=== PATIENT | male | born 1995 ===

== ENCOUNTER 2018-03-01 20:51 | Inpatient (IN) | payer BC ==
[2018-03-01] MEDS ORDERED: Sodium Chloride 0.9% 1,000 ML IV STA (21:11)
[2018-03-01 21:15] VITALS: RESP 18; BMI 20.5
--- NOTE | 2018-03-01 21:19 | ED PDOC ---
Arrival/HPI - General Chief Complaint: ENT Problem Time Seen by Provider: 03/01/18 21:09 Historian: Patient - History of Present Illness Narrative History of Present Illness (Text): 03/01/18 21:16 This 22 yo male with pmh peritosilar abscess, presents to this emergency department complaining of sore throat x 2 days. Patient stated left side is worse than right. Patient has mild dyphagia, but he is able to drink water. Time/Duration: Other (2 days) Context: Home Past Medical History - Provider Review Nursing Documentation Reviewed: Yes - Infectious Disease Hx of Infectious Diseases: None - Tetanus Immunization Tetanus Immunization: Unknown - Psychiatric Hx Depression: No Hx Emotional Abuse: No Hx Physical Abuse: No Hx Substance Use: No - Surgical History Other/Comment: ? buttock surgery - fissure - Anesthesia Hx Anesthesia: Yes Hx Anesthesia Reactions: No Hx Malignant Hyperthermia: No - Suicidal Assessment Feels Threatened In Home Enviroment: No Family/Social History - Physician Review Nursing Documentation Reviewed: Yes Family/Social History: Other (noncontributory) Smoking Status: Heavy Smoker > 10 Cigarettes Daily Hx Alcohol Use: Yes Frequency of alcohol use: Socially Hx Substance Use: No Hx Substance Use Treatment: No Allergies/Home Meds Allergies/Adverse Reactions: Allergies No Known Allergies Allergy (Verified 09/23/16 06:41) Home Medications: Home Meds Medication Instructions Recorded Confirmed No Known Home Med 09/23/16 03/01/18 Review of Systems - Review of Systems Constitutional: Normal. absent: Fatigue, Weight Change, Fevers, Night Sweats Eyes: Normal ENT: Sore Throat, Other (see hpi). absent: Rhinorrhea, Epistaxis, Sinus Congestion Respiratory: Normal. absent: SOB, Cough Cardiovascular: Normal. absent: Chest Pain, Palpitations Gastrointestinal: Normal. absent: Abdominal Pain, Nausea, Vomiting Genitourinary Male: Normal. absent: Dysuria, Frequency Musculoskeletal: Normal Skin: Normal. absent: Rash Neurological: Normal. absent: Headache, Dizziness, Focal Weakness, Gait Changes , Speech Changes, Facial Droop, Disequilibrium, Seizure Endocrine: Normal Hemo/Lymphatic: Normal Psychiatric: Normal Physical Exam Vital Signs Temp Pulse Resp BP Pulse Ox 03/01/18 21:01 99.2 F 97 H 18 108/63 97 Temperature: Afebrile Blood Pressure: Normal Pulse: Regular Respiratory Rate: Normal Appearance: Positive for: Well-Appearing, Non-Toxic, Comfortable Pain Distress: None Mental Status: Positive for: Alert and Oriented X 3 - Systems Exam Head: Present: Atraumatic, Normocephalic Pupils: Present: PERRL Extroacular Muscles: Present: EOMI Conjunctiva: Present: Normal Mouth: Present: Moist Mucous Membranes, Normal Lips, Normal Tounge, Normal Teeth. No: Drooling, Trismus Pharnyx: Present: ERYTHEMA, TONSILS ENLARGED, Peritonsilar Swelling, Soft Palate /Uvular Edema (mild). No: EXUDATE, Uvular Deviation, Muffled/Hoarse Voice, Strider Nose (External): Present: Atraumatic Nose (Internal): Present: Normal Inspection Neck: Present: Normal Range of Motion, Lymphadenopathy (mild left cervical lymphadenopathy), Trachea Midline. No: MIDLINE TENDERNESS, Paraspinal Tenderness Respiratory/Chest: Present: Clear to Auscultation, Good Air Exchange. No: Respiratory Distress, Accessory Muscle Use, Wheezes, Retracting, Rhonchi, Tachypneic Cardiovascular: Present: Regular Rate and Rhythm, Normal S1, S2. No: Murmurs Abdomen: No: Tenderness, Distention, Peritoneal Signs Back: Present: Normal Inspection. No: CVA Tenderness, Midline Tenderness, Paraspinal Tenderness, Pain with Leg Raise Upper Extremity: Present: Normal Inspection, Normal ROM, NORMAL PULSES, Neurovascularly Intact, Capillary Refill < 2s. No: Cyanosis, Edema Lower Extremity: Present: Normal Inspection, NORMAL PULSES, Normal ROM, Neurovascularly Intact, Capillary Refill < 2 s. No: Edema Neurological: Present: GCS=15, CN II-XII Intact, Speech Normal, Motor Func Grossly Intact, Normal Sensory Function, Normal Cerebellar Funct, Gait Normal Skin: Present: Warm, Dry, Normal Color. No: Rashes Psychiatric: Present: Alert, Oriented x 3, Normal Insight, Normal Concentration Medical Decision Making ED Course and Treatment: 03/01/18 21:20 I reviewed with patient the risk taking Solumedrol IVP including AVN, glaucoma, Diabetes, osteoporosis. He understood risk, but he would like to have Solumedrol. 03/02/18 00:[address] Shaikh ENT regarding lab result, CT scan which shows a 3 cm left peritonsilar abscess. He recommended to continue with Unasyn Q6H, Solumedrol 60 mg Q6H, and admission. He said he will see patient tomorrow. 03/02/18 00:[address] Brito regarding patient symptoms, labs, VS, and ENT consult. Dr. Brito stated patient appears non-toxic, comfortable, in no acute distress. Patient can be admitted to Med-surg. Re-evaluation Time: 00:49 Reassessment Condition: Re-examined, Improving,but remains with symptoms - Lab Interpretations Lab Results: 03/01/18 19:40 03/01/18 19:40 Lab Results 03/01/18 23:39: pO2 208 H, VBG pH 7.40, VBG pCO2 47.0, VBG HCO3 29.1 H, VBG Total CO2 30.5 H, VBG O2 Sat (Calc) 99.9 H, VBG Base Excess 3.5 H, VBG Potassium 4.3, Glucose 114 H, Lactate 1.0, FiO2 21.0, Sodium 136.0, Chloride 105.0, Venous Blood Potassium 4.3 03/01/18 19:40: Sodium 142, Potassium 4.0, Chloride 101, Carbon Dioxide 27, Anion Gap 18, BUN 9, Creatinine 0.7 L, Est GFR ( Amer) > 60, Est GFR (Non -Af Amer) > 60, Random Glucose 141 H, Calcium 9.0, Total Bilirubin < 0.1 L, AST 26, ALT 31, Alkaline Phosphatase 64, Total Protein 6.8, Albumin 4.0, Globulin 2.8, Albumin/Globulin Ratio 1.4 03/01/18 19:40: Grp A Beta Strep Ag Negative 03/01/18 19:40: WBC 18.6 H, RBC 4.37, Hgb 12.9 L, Hct 38.6 L, MCV 88.3, MCH 29.5 , MCHC 33.4, RDW 13.0, Plt Count 409, MPV 8.6, Gran % 66.5, Lymph % (Auto) 21.1 L, [place] % (Auto) 11.2 H, Eos % (Auto) 1.1 L, Baso % (Auto) 0.1, Gran # 12.37 H, Lymph # (Auto) 3.9 H, [place] # (Auto) 2.1 H, Eos # (Auto) 0.2, Baso # (Auto) 0.01 I have reviewed the lab results: Yes Interpretation: Abnormal lab values - RAD Interpretation Narrative RAD Interpretations (Text): 03/02/18 00:26 FINDINGS: Oropharynx: Left irregular peritonsillar fluid collection measuring 2.1 x 2.8 x 1.7 cm. There is focal mass effect upon the adjacent airway which measures 4 mm in AP diameter. Hypopharynx: Unremarkable. Larynx: Unremarkable. Normal epiglottis. Trachea: Unremarkable. Retropharyngeal space: Unremarkable. Submandibular/parotid glands: Unremarkable. Glands are normal in size. Thyroid: Unremarkable. No enlarged or calcified nodules. Bones/joints: No acute fracture. Soft tissues: Unremarkable. Vasculature: No acute findings. Lymph nodes: Multiple mildly prominent bilateral cervical lymph nodes. The largest on the left measures 1.4 cm. Sinuses: There is diffuse mucoperiosteal thickening in the maxillary and ethmoid sinuses, consistent with chronic sinusitis. Lung apices: Unremarkable as visualized. IMPRESSION: Left peritonsillar abscess with focal mass effect upon the adjacent airway Radiology Orders: 03/01/18 21:14 NECK SOFT TISSUE W/CONTRAST [CT] Stat - Medication Orders Current Medication Orders: Sodium Chloride (Sodium Chloride 0.9%) 1,000 mls @ 100 mls/hr IV .Q10H [place] Ampicillin Sodium/Sulbactam (Sodium 3 gm/ Sodium Chloride) 100 mls @ 200 mls/ hr IVPB Q6 [place] PRN Reason: Protocol Methylprednisolone (Solu-Medrol) 60 mg IVP Q6H [place] Stop: 03/02/18 12:00 Discontinued Medications Sodium Chloride (Sodium Chloride 0.9%) 1,000 mls @ 999 mls/hr IV .Q1H1M STA Stop: 03/01/18 22:11 Last Admin: 03/01/18 21:33 Dose: 999 mls/hr eMAR Start Stop Document 03/01/18 21:33 RADHA (Rec: 03/01/18 21:33 RADHA [id number]) Intravenous Solution Start Date 03/01/18 Start Time 21:33 End Date 03/01/18 End time 22:34 Total Infusion Time 61 Ampicillin Sodium/Sulbactam (Sodium 3 gm/ Sodium Chloride) 100 mls @ 100 mls/ hr IVPB STAT STA PRN Reason: Protocol Stop: 03/01/18 22:12 Last Admin: 03/01/18 21:52 Dose: 100 mls/hr eMAR Start Stop Document 03/01/18 21:52 JOL (Rec: 03/01/18 21:53 JOL [id number]) Intravenous Solution Start Date 03/01/18 Start Time 21:53 End Date 03/01/18 End time 22:53 Total Infusion Time 60 Methylprednisolone (Solu-Medrol) 125 mg IVP STAT STA Stop: 03/01/18 21:13 Last Admin: 03/01/18 21:33 Dose: 125 mg IVP Administration Document 03/01/18 21:33 JOL (Rec: 03/01/18 21:33 JOL [id number]) Charges for Administration # of IVP Administrations 1 Morphine Sulfate (Morphine) 2 mg IVP STAT STA Stop: 03/01/18 21:45 Last Admin: 03/01/18 21:53 Dose: 2 mg MAR Pain Assessment Document 03/01/18 21:53 JOL (Rec: 03/01/18 21:54 JOL [id number]) Pain Reassessment Is this a pain reassessment? No Sleep Is patient sleeping during reassessment? No Presence of Pain Presence of Pain Yes Pain Scale Used Pain Scale Used Numeric Location Pain Location Body Site Throat Description Intensity of Pain at present 7 Acceptable Level of Pain 2 Pain Behavior Guarding Restlessness Facial Grimacing IVP Administration Document 03/01/18 21:53 JOL (Rec: 03/01/18 21:54 JOL [id number]) Charges for Administration # of IVP Administrations 1 Ondansetron HCl (Zofran Inj) 4 mg IVP STAT STA Stop: 03/01/18 21:45 Last Admin: 03/01/18 21:53 Dose: 4 mg IVP Administration Document 03/01/18 21:53 JOL (Rec: 03/01/18 21:53 JOL [id number]) Charges for Administration # of IVP Administrations 1 Disposition/Present on Arrival - Present on Arrival Any Indicators Present on Arrival: No History of DVT/PE: No History of Uncontrolled Diabetes: No Urinary Catheter: No History of Decub. Ulcer: No History Surgical Site Infection Following: None - Disposition Have Diagnosis and Disposition been Completed?: Yes Diagnosis: Peritonsillar abscess Disposition: HOSPITALIZED Disposition Time: 00:50 Patient Plan: Admission Condition: STABLE Discharge Instructions (ExitCare): Peritonsillar Abscess, Adult (DC) Forms: Valneva (Nepali)
[2018-03-01] MEDS ORDERED: Morphine 2 mg/ml ISec IVP STA (21:44)
[2018-03-01] MEDS ORDERED: Morphine 4 mg/ml ISec ONE (21:46)
[2018-03-01 21:50] LABS: BASO # 0.01 K/mm3 (0.0-2.0); BASO % 0.1 % (0.0-3.0); EOS # 0.2 (0.0-0.7); EOS % 1.1 % (1.5-5.0); GRAN # 12.37 (1.4-6.5); GRAN % 66.5 % (50.0-68.0); HEMOGLOBIN 12.9 g/dL (14.0-18.0); LYMPH # 3.9 (1.2-3.4); LYMPH % 21.1 % (22.0-35.0); MEAN CELL VOLUME 88.3 fl (80.0-105.0); MEAN CORPUSCULAR HEMOGLOBIN 29.5 pg (25.0-35.0); MEAN CORPUSCULAR HGB CONC 33.4 g/dl (31.0-37.0); MEAN PLATELET VOLUME 8.6 fl (7.0-11.0); MONO # 2.1 (0.1-0.6); MONO % 11.2 % (1.0-6.0); RBC 4.37 10^6/uL (3.5-6.1); WHITE BLOOD COUNT 18.6 10^3/ul (4.5-11.0)
[2018-03-01 21:52] LABS: ALB/GLOB RATIO 1.4 (1.1-1.8); ALT/SGPT 31 U/L (7-56); AST/SGOT 26 U/L (17-59); BLOOD UREA NITROGEN 9 mg/dL (7-21); GFR AFRICAN-AMERICAN > 60; GFR NON-AFRICAN AMERICAN > 60
[2018-03-01] MEDS ORDERED: Iohexol 350 MG/100 ML VIAL ONE (22:04)
[2018-03-02 00:01] LABS: VENOUS BLOOD GAS BASE EXCESS 3.5 mmol/L (0.0-2.0); VENOUS BLOOD GAS PO2 208 mm/Hg (30-55)
[2018-03-02] MEDS ORDERED: Sodium Chloride 0.9% 1,000 ML IV SCH (00:45)
--- NOTE | 2018-03-02 01:11 | CP.PCM.HP ---
<Kendall Hermosillo - Last Filed: 03/02/18 01:16> History of Present Illness - History of Present Illness History of Present Illness: 22 year old male with a past medical history of peritonsilar abscess comes into the emergency department today complaining of a sore throat for the past couple of days. The patient reports the pain is more pronounced on the left side in comparison to the right. Patient does reports being able to tolerate liquids, however does report dysphagia for some foods. He denies any fevers, chills, nausea, vomiting, changes in vision, abdominal pain, fatigue, headache, syncopal episodes, or any other complaints. PMD: Denies Past medical history: Pertonsilar abscess Medications: Denies Allergies: Denies Surgical history: Denies Family history denies Present on Admission - Present on Admission Any Indicators Present on Admission: No Review of Systems - Constitutional Constitutional: absent: Daytime Sleepiness, Headache, Snoring, Weakness - EENT Eyes: absent: Discharge, Sees Flashes Ears: absent: Ear Discharge, Dizziness Nose/Mouth/Throat: Sore Throat. absent: Nasal Congestion, Nose Pain, Bleeding Gums, Dysphagia, Hoarsness - Cardiovascular Cardiovascular: absent: Chest Pain, Claudication, Irregular Heart Rhythm, Leg Edema, Palpitations - Respiratory Respiratory: absent: Cough, Dyspnea, Hemoptysis, Pain on Inspiration - Gastrointestinal Gastrointestinal: absent: Change in Stool Character, Dyspepsia, Fecal Incontinence, Loose Stools, Melena, Nausea, Vomiting - Musculoskeletal Musculoskeletal: absent: Arthralgias, Myalgias, Tingling - Integumentary Integumentary: absent: Hirsutism, Lesions, Sores, Striae, Swelling - Neurological Neurological: absent: Loss of Vision, Syncope, Tingling, Tremor, Vertigo, Weakness - Endocrine Endocrine: absent: Polydipsia, Polyphagia, Polyuria Past Patient History - Infectious Disease Hx of Infectious Diseases: None - Tetanus Immunizations Tetanus Immunization: Unknown - Past Social History Smoking Status: Heavy Smoker > 10 Cigarettes Daily - PSYCHIATRIC Hx Depression: No Hx Emotional Abuse: No Hx Physical Abuse: No Hx Substance Use: No - SURGICAL HISTORY Other/Comment: ? buttock surgery - fissure - ANESTHESIA Hx Anesthesia: Yes Hx Anesthesia Reactions: No Hx Malignant Hyperthermia: No Meds Allergies/Adverse Reactions: Allergies Allergy/AdvReac Type Severity Reaction Status Date / Time No Known Allergies Allergy Verified 09/23/16 06:41 Physical Exam - Head Exam Head Exam: ATRAUMATIC, NORMAL INSPECTION, NORMOCEPHALIC - Eye Exam Eye Exam: EOMI, Normal appearance, PERRL Pupil Exam: NORMAL ACCOMODATION, PERRL - ENT Exam ENT Exam: Mucous Membranes Moist Additional comments: Abscess note around the left tonsil - Respiratory Exam Respiratory Exam: Clear to Auscultation Bilateral, NORMAL BREATHING PATTERN. absent: Chest Wall Tenderness, Prolonged Expiratory Phase, Respiratory Distress - Cardiovascular Exam Cardiovascular Exam: REGULAR RHYTHM, +S1, +S2 - GI/Abdominal Exam GI & Abdominal Exam: Normal Bowel Sounds, Soft - Extremities Exam Extremities exam: Positive for: normal inspection. Negative for: full ROM, pedal edema - Neurological Exam Neurological exam: Alert, CN II-XII Intact, Oriented x3 - Psychiatric Exam Psychiatric exam: Normal Affect, Normal Mood - Skin Skin Exam: Dry, Intact, Normal Color Results - Vital Signs Recent Vital Signs: Last Vital Signs Temp 99.2 F 03/01/18 21:01 Pulse 97 H 03/01/18 21:01 Resp 18 03/01/18 21:01 BP 108/63 03/01/18 21:01 Pulse Ox 97 03/01/18 21:01 - Labs Result Diagrams: 03/01/18 19:40 03/01/18 19:40 Labs: Laboratory Results - last 24 hr 03/01/18 03/01/18 03/01/18 19:40 19:40 19:40 WBC 18.6 H RBC 4.37 Hgb 12.9 L Hct 38.6 L MCV 88.3 MCH 29.5 MCHC 33.4 RDW 13.0 Plt Count 409 MPV 8.6 Gran % 66.5 Lymph % (Auto) 21.1 L [place] % (Auto) 11.2 H Eos % (Auto) 1.1 L Baso % (Auto) 0.1 Gran # 12.37 H Lymph # (Auto) 3.9 H [place] # (Auto) 2.1 H Eos # (Auto) 0.2 Baso # (Auto) 0.01 pO2 VBG pH VBG pCO2 VBG HCO3 VBG Total CO2 VBG O2 Sat (Calc) VBG Base Excess VBG Potassium Glucose Lactate FiO2 Sodium 142 Potassium 4.0 Chloride 101 Carbon Dioxide 27 Anion Gap 18 BUN 9 Creatinine 0.7 L Est GFR ( Amer) > 60 Est GFR (Non-Af Amer) > 60 Random Glucose 141 H Calcium 9.0 Total Bilirubin < 0.1 L AST 26 ALT 31 Alkaline Phosphatase 64 Total Protein 6.8 Albumin 4.0 Globulin 2.8 Albumin/Globulin Ratio 1.4 Venous Blood Potassium Grp A Beta Strep Ag Negative 03/01/18 23:39 WBC RBC Hgb Hct MCV MCH MCHC RDW Plt Count MPV Gran % Lymph % (Auto) [place] % (Auto) Eos % (Auto) Baso % (Auto) Gran # Lymph # (Auto) [place] # (Auto) Eos # (Auto) Baso # (Auto) pO2 208 H VBG pH 7.40 VBG pCO2 47.0 VBG HCO3 29.1 H VBG Total CO2 30.5 H VBG O2 Sat (Calc) 99.9 H VBG Base Excess 3.5 H VBG Potassium 4.3 Glucose 114 H Lactate 1.0 FiO2 21.0 Sodium 136.0 Potassium Chloride 105.0 Carbon Dioxide Anion Gap BUN Creatinine Est GFR ( Amer) Est GFR (Non-Af Amer) Random Glucose Calcium Total Bilirubin AST ALT Alkaline Phosphatase Total Protein Albumin Globulin Albumin/Globulin Ratio Venous Blood Potassium 4.3 Grp A Beta Strep Ag Assessment & Plan - Assessment and Plan (Free Text) Assessment: 22 year old male with a history of peritonsilar abscess being admitted for pertonsillar abscess. Plan: 1. Peritonsilar abscess. -Neck soft tissue with contrast: left peritonsilar abscess with focal mass effect upon the adjacent airway -Unasyn 3gm IVP q6. -IV solu-medrol 60mg Q6. -Tylenol PRN for Fever >100.4F -ENT consulted. Help appreciated. PPX -Protonix -Heparin Case discussed with Attending Dr. Woo. Kendall Hermosillo, PGY-1 <Amna BAILEY,Eduardo - Last Filed: 03/02/18 07:12> Results - Vital Signs Recent Vital Signs: Last Vital Signs Temp 97.5 F L 03/02/18 03:49 Pulse 71 03/02/18 03:49 Resp 18 03/02/18 03:49 BP 107/61 03/02/18 03:49 Pulse Ox 97 03/02/18 01:00 - Labs Result Diagrams: 03/01/18 19:40 03/01/18 19:40 Attending/Attestation - Attestation I have personally seen and examined this patient.: Yes I have fully participated in the care of the patient.: Yes I have reviewed all pertinent clinical information: Yes Notes (Text): -I agree with the above H&P completed by the resident physician (including the assessment and plan).
[2018-03-02] MEDS ORDERED: MethylPREDNISolone 40 mg Vial IVP SCH ×2 (03:30→10:00)
[2018-03-02 08:10] VITALS: BP 95/57; PULSE 72; TEMP 97.4; O2SAT 98
--- NOTE | 2018-03-02 08:47 | CT ---
PROCEDURE: CT NECK WITH CONTRAST HISTORY: sore throat r/o peritonsilar abscess COMPARISON: None TECHNIQUE: CT of the neck with intravenous contrast. Coronal and sagittal reformats generated. Intravenous contrast dose: Radiation dose: DLP mGy-cm This CT exam was performed using one or more of the following dose reduction techniques: Automated exposure control, adjustment of the mA and/or kV according to patient size, and/or use of iterative reconstruction technique. FINDINGS: NASOPHARYNX: Unremarkable. SUPRAHYOID NECK: Irregular large left peritonsillar fluid collection measuring 2 x 1 x 2.8 x 1.7 centimeters with mass-effect upon the adjacent airway which measures 4 millimeters in AP dimension. INFRAHYOID NECK: Unremarkable larynx, hypopharynx, and supraglottic space. Vocal cords intact. MASS: None. GLANDS: Parotid and submandibular glands unremarkable. Normal size thyroid gland, without nodule. LYMPH NODES: Multiple bilateral prominent cervical lymph nodes. CERVICAL SPINE: No fracture or focal lesion. VASCULAR STRUCTURES: Unremarkable. OTHER FINDINGS: Extensive pansinus disease. IMPRESSION: Irregular large left peritonsillar fluid collection measuring 2 x 1 x 2.8 x 1.7 centimeters with mass-effect upon the adjacent airway which measures 4 millimeters in AP dimension.
[2018-03-02] MEDS ORDERED: Morphine 4 mg/ml ISec IVP STA (11:50)
[2018-03-02] MEDS ORDERED: Lidocaine 2% Inj (20ml) IJ STA (11:50)
--- NOTE | 2018-03-02 12:26 | CP.PCM.CON ---
History of Present Illness - History of Present Illness History of Present Illness: 22 y/o presents with approx 2 day hx of throat pain and swelling. Pt has had recurrent peritonsil abscesses in past requiring Incision and drainage. Pt did not follow through with tonsillectomy in past secondary to insurance coverage. Pt has left ear pain and left throat pain. Feels better since last evening admission. Review of Systems - Constitutional Constitutional: As Per HPI, Fatigue, Fever, Weakness - EENT Eyes: As Per HPI Ears: As Per HPI, Ear Pain Nose/Mouth/Throat: As Per HPI, Dysphagia, Odynophagia, Sore Throat, Throat Swelling - Cardiovascular Cardiovascular: As Per HPI - Respiratory Respiratory: As Per HPI - Gastrointestinal Gastrointestinal: As Per HPI - Reproductive: Male Reproductive:Male: As Per HPI - Musculoskeletal Musculoskeletal: As Per HPI - Integumentary Integumentary: As Per HPI - Neurological Neurological: As Per HPI - Psychiatric Psychiatric: As Per HPI - Endocrine Endocrine: As Per HPI - Hematologic/Lymphatic Hematologic: As Per HPI Past Patient History - Infectious Disease Hx of Infectious Diseases: None - Tetanus Immunizations Tetanus Immunization: Unknown - Past Social History Smoking Status: Current Some Days Smoker - MUSCULOSKELETAL/RHEUMATOLOGICAL Hx Falls: No - PSYCHIATRIC Hx Substance Use: No - SURGICAL HISTORY Other/Comment: ? buttock surgery - fissure - ANESTHESIA Hx Anesthesia: Yes Hx Anesthesia Reactions: No Hx Malignant Hyperthermia: No Meds Allergies/Adverse Reactions: Allergies Allergy/AdvReac Type Severity Reaction Status Date / Time No Known Allergies Allergy Verified 09/23/16 06:41 - Medications Medications: Current Medications Acetaminophen (Tylenol 325mg Tab) 650 mg PO Q6H PRN PRN Reason: Fever >100.4 F Heparin Sodium (Porcine) (Heparin) 5,000 units SC Q12 [place] PRN Reason: Protocol Last Admin: 03/02/18 09:14 Dose: 5,000 units Sodium Chloride (Sodium Chloride 0.9%) 1,000 mls @ 100 mls/hr IV .Q10H [facility] Last Admin: 03/02/18 01:10 Dose: 100 mls/hr Ampicillin Sodium/Sulbactam (Sodium 3 gm/ Sodium Chloride) 100 mls @ 200 mls/ hr IVPB Q6 [place] PRN Reason: Protocol Last Admin: 03/02/18 12:01 Dose: 200 mls/hr Pantoprazole Sodium (Protonix Inj) 40 mg IVP DAILY [place] Last Admin: 03/02/18 09:14 Dose: 40 mg Physical Exam - Constitutional Appears: Well, Non-toxic - Head Exam Head Exam: ATRAUMATIC, NORMAL INSPECTION, NORMOCEPHALIC - Eye Exam Eye Exam: EOMI, Normal appearance Pupil Exam: NORMAL ACCOMODATION - ENT Exam ENT Exam: Mucous Membranes Moist, Normal External Ear Exam Additional comments: large fullness left soft palate adjacent to peritonsil region Procedure: after informed consent obtained. left peritonsil region anesthetized with 2% lidocine, 18G used to enter into abscess pocket 5cc purulence drained from peritonsil space. 15 blade used to open peritonsil space and hemostat used to further open abscess pocket and break up locuations. Patient tolerated the procedure well. culture taken. - Expanded ENT Exam Expanded Mouth exam: muffled voice. absent: drooling Throat exam: Post Pharyngeal Edema, Post Pharyngeal Erythema, Tonsillar Erythema - Neck Exam Neck exam: Positive for: Normal Inspection - Respiratory Exam Respiratory Exam: NORMAL BREATHING PATTERN - Neurological Exam Neurological exam: Alert, CN II-XII Intact, Oriented x3 - Skin Skin Exam: Intact, Normal Color, Warm Results - Vital Signs Recent Vital Signs: Last Vital Signs Temp 97.4 F L 03/02/18 08:14 Pulse 72 03/02/18 08:14 Resp 18 03/02/18 08:14 BP 95/57 L 03/02/18 08:14 Pulse Ox 98 03/02/18 08:14 - Labs Result Diagrams: 03/01/18 19:40 03/01/18 19:40 Assessment & Plan (1) Peritonsillar abscess Status: Acute (2) Cellulitis of tonsil Status: Acute (3) Acute tonsillitis Status: Acute (4) Chronic tonsillitis Status: Acute - Assessment and Plan (Free Text) Plan: Incision and drainage performed pt to be discharged home on tylenol with codeine, augmentin and ibuprofen he is to f/u in office for arrangement of out patient tonsillectomy - Date & Time Date: 03/02/18 Time: 12:26
--- NOTE | 2018-03-02 12:50 | CP.PCM.DIS ---
Provider - Provider Date of Admission: 03/02/18 01:13 Attending physician: Sabi Jo MD Primary care physician: NO FAMILY PROVIDER Time Spent in preparation of Discharge (in minutes): 45 Hospital Course - Lab Results Lab Results: Most Recent Lab Values WBC 18.6 10^3/ul (4.5-11.0) H 03/01/18 19:40 RBC 4.37 10^6/uL (3.5-6.1) 03/01/18 19:40 Hgb 12.9 g/dL (14.0-18.0) L 03/01/18 19:40 Hct 38.6 % (42.0-52.0) L 03/01/18 19:40 MCV 88.3 fl (80.0-105.0) 03/01/18 19:40 MCH 29.5 pg (25.0-35.0) 03/01/18 19:40 MCHC 33.4 g/dl (31.0-37.0) 03/01/18 19:40 RDW 13.0 % (11.5-14.5) 03/01/18 19:40 Plt Count 409 10^3/uL (120.0-450.0) 03/01/18 19:40 MPV 8.6 fl (7.0-11.0) 03/01/18 19:40 Gran % 66.5 % (50.0-68.0) 03/01/18 19:40 Lymph % (Auto) 21.1 % (22.0-35.0) L 03/01/18 19:40 [place] % (Auto) 11.2 % (1.0-6.0) H 03/01/18 19:40 Eos % (Auto) 1.1 % (1.5-5.0) L 03/01/18 19:40 Baso % (Auto) 0.1 % (0.0-3.0) 03/01/18 19:40 Gran # 12.37 (1.4-6.5) H 03/01/18 19:40 Lymph # (Auto) 3.9 (1.2-3.4) H 03/01/18 19:40 [place] # (Auto) 2.1 (0.1-0.6) H 03/01/18 19:40 Eos # (Auto) 0.2 (0.0-0.7) 03/01/18 19:40 Baso # (Auto) 0.01 K/mm3 (0.0-2.0) 03/01/18 19:40 pO2 208 mm/Hg (30-55) H 03/01/18 23:39 VBG pH 7.40 (7.32-7.43) 03/01/18 23:39 VBG pCO2 47.0 (40-60) 03/01/18 23:39 VBG HCO3 29.1 mmol/l (21-28) H 03/01/18 23:39 VBG Total CO2 30.5 mmol.L (22-28) H 03/01/18 23:39 VBG O2 Sat (Calc) 99.9 % (40-65) H 03/01/18 23:39 VBG Base Excess 3.5 mmol/L (0.0-2.0) H 03/01/18 23:39 VBG Potassium 4.3 mmol/L (3.6-5.2) 03/01/18 23:39 Sodium 136.0 mmol/L (132-148) 03/01/18 23:39 Chloride 105.0 mmol/L (98-107) 03/01/18 23:39 Glucose 114 mg/dl (75-110) H 03/01/18 23:39 Lactate 1.0 mmol/L (0.7-2.1) 03/01/18 23:39 FiO2 21.0 % 03/01/18 23:39 Sodium 142 mmol/L (132-148) 03/01/18 19:40 Potassium 4.0 mmol/L (3.6-5.0) 03/01/18 19:40 Chloride 101 mmol/L (98-107) 03/01/18 19:40 Carbon Dioxide 27 mmol/L (21-33) 03/01/18 19:40 Anion Gap 18 (10-20) 03/01/18 19:40 BUN 9 mg/dL (7-21) 03/01/18 19:40 Creatinine 0.7 mg/dl (0.8-1.5) L 03/01/18 19:40 Est GFR ( Amer) > 60 03/01/18 19:40 Est GFR (Non-Af Amer) > 60 03/01/18 19:40 Random Glucose 141 mg/dL (70-110) H 03/01/18 19:40 Calcium 9.0 mg/dL (8.4-10.5) 03/01/18 19:40 Total Bilirubin < 0.1 mg/dL (0.2-1.3) L 03/01/18 19:40 AST 26 U/L (17-59) 03/01/18 19:40 ALT 31 U/L (7-56) 03/01/18 19:40 Alkaline Phosphatase 64 U/L (38-126) 03/01/18 19:40 Total Protein 6.8 g/dL (5.8-8.3) 03/01/18 19:40 Albumin 4.0 g/dL (3.0-4.8) 03/01/18 19:40 Globulin 2.8 gm/dL 03/01/18 19:40 Albumin/Globulin Ratio 1.4 (1.1-1.8) 03/01/18 19:40 Venous Blood Potassium 4.3 mmol/L (3.6-5.2) 03/01/18 23:39 Grp A Beta Strep Ag Negative (NEGATIVE) 03/01/18 19:40 - Hospital Course Hospital Course: 22 year old male with a past medical history of peritonsilar abscess comes into the emergency department today complaining of a sore throat for the past couple of days. The patient reports the pain is more pronounced on the left side in comparison to the right. Patient does reports being able to tolerate liquids, however does report dysphagia for some foods. During hospital course patient had an I&D at bedside from ENT. Patient tolerated the procedure well and is cleared for discharge home in stable condition on Abx and pain medications Discharge Exam - Head Exam Head Exam: ATRAUMATIC, NORMAL INSPECTION, NORMOCEPHALIC - Eye Exam Eye Exam: EOMI. absent: Scleral icterus - ENT Exam ENT Exam: Mucous Membranes Moist Additional comments: poor dentition Left peritonsillar abscess - Respiratory Exam Respiratory Exam: NORMAL BREATHING PATTERN. absent: Accessory Muscle Use, Respiratory Distress - Cardiovascular Exam Cardiovascular Exam: +S1, +S2. absent: Bradycardia, Tachycardia - GI/Abdominal Exam GI & Abdominal Exam: Soft. absent: Rebound, Rigid, Tenderness - Neurological Exam Neurological exam: Alert, Oriented x3 - Psychiatric Exam Psychiatric exam: Normal Affect - Skin Skin Exam: Intact, Warm Discharge Plan - Discharge Medications Prescriptions: Acetaminophen with Codeine [Tylenol with Codeine #3 Tablet] 1 each PO Q6 PRN # 20 tablet PRN Reason: Pain, Moderate (4-7) Acetaminophen with Codeine [Tylenol with Codeine #4 Tablet] 1 each PO Q6 PRN # 20 tablet PRN Reason: Pain, Moderate (4-7) Amoxicillin/Clavulanate [Augmentin 875 MG-125 MG] 1 tab PO BID 10 Days #20 tab Ibuprofen 600 mg PO QID #60 tablet - Follow Up Plan Condition: STABLE Disposition: HOME/ ROUTINE Instructions: Abscess (GEN) Additional Instructions: Follow up in office w/ Dr. Shaikh ENT for elective tonsillectomy. Take antibiotics and prescriptions as written. Referrals: Rich Shaikh DO [Staff Provider] - FAMILY PROVIDER,NO [Primary Care Provider] -
== END 2018-03-02 14:00 | disposition home or self-care (01) | DRG 153 ==
LOC: ED 20:51 → ERH 03-02 01:13 → 3RSO 03-02 02:24
PROVIDERS: ADMIT Internal Medicine; ATTEND Internal Medicine
DX: J36 Peritonsillar abscess (principal); R13.10 Dysphagia, unspecified; F17.210 Nicotine dependence, cigarettes, uncomplicated